=== PATIENT | female | born 2000 | race Caucasian/White ===

== ENCOUNTER 2022-11-24 11:28 | Inpatient (IN) ==
--- NOTE | 2022-11-24 11:50 | History & Physical Report ---
Date of Service November 24, 2022 Assessment & Plan (1) SROM (spontaneous rupture of membranes): Plan: Dayna is a 22-year-old currently at 38 weeks 3 days gestational age presents with spontaneous rupture of membranes. Of note patient is opting for an elective primary has been extensively discussed with her in clinic. consents reviewed and signed. 1. Fetus: Cat 1 2. Vitals: Elevated at present but IV actively being placed. Will monitor. (2) Obesity affecting : (3) Large for gestational age fetus affecting management of mother: (4) Supervision of normal first : History of Present Illness Primary Care Provider: Kofi Mccarthy DO Dayna is a 22-year-old currently at 38 weeks 3 days gestational age presents with spontaneous rupture of membranes. Patient noted to be grossly ruptured upon arrival. Of note patient is an elective primary which has been extensively reviewed with the patient previously. Patient reporting mild contractions denying any vaginal bleeding. Good movement noted. and Delivery Plans Obesity (BMI 40 and higher @ beginning of ) *Growth US @ 32wks *Weekly NSTs @ 34wks *BMI 40 or greater offer detailed/level II anatomy at [facility] *BMI 50 or greater scheduled detailed/level II anatomy at [facility] Polyhydramnios - Resolved LGA OB Labs: Blood Type A Positive 04/18/22 Antibody Screen NEGATIVE 04/18/22 Hemoglobin 11.1 g/dl (12.0-16.0) L 09/13/22 Hematocrit 33.4 % (34.1-44.9) L 09/13/22 Mean Corpuscular Volume 89.6 fL (80.0-100.0) 04/18/22 Platelet Count 318 K/uL (130-400) 04/18/22 Rubella IgG Antibody Immune (Immune) 04/18/22 Rapid Plasma Reagin Nonreactive (Nonreactive) 04/18/22 Hepatitis B Surface Antigen. NON-REACTIVE (NON-REACTIVE) 04/18/22 Hepatitis C Antibody (EIA) NON-REACTIVE (NON-REACTIVE) 04/18/22 HIV (1&2) Ag and Ab Confirmation NON-REACTIVE (NON-REACTIVE) 04/18/22 Glucose 1 Hour 50 gm Load 124 mg/dl (70-130) 09/13/22 Maternal Serum Alpha Fetoprotein 25.7 ng/mL 06/21/22 OB Optional Labs: Chlamydia trachomatis RNA NOT DETECTED (NOT DETECTED) 04/18/22 Neisseria gonorrhoeae RNA NOT DETECTED (NOT DETECTED) 04/18/22 Alpha Fetoprotein Triple Screen SEE NOTE 06/21/22 Labs Reviewed: cf/sma-negative--mln cfdna-low risk--mln msafp--neg, smp Allergies Allergy/AdvReac Type Severity Reaction Status Date / Time No Known Allergies Allergy Verified 11/21/22 08:53 Home Medications Medication Instructions Recorded Confirmed Type venlafaxine 150 mg 150 mg PO BID 03/29/22 11/21/22 History capsule,extended release 24 hr prenat.vits,jersey,xde-vunm-ktlhw 1 tab PO QAM 04/08/22 11/21/22 History Patient History Medical History Anxiety Varicella vaccination Surgical History History of tonsillectomy History of wisdom tooth extraction Family History Grandmother (Maternal) No problems noted. Family/Other Ovarian cancer Breast cancer Maternal great grandmother Denies family history of Colorectal cancer Social History Smoking Status: Never smoker Second Hand Exposure: No; Hx Alcohol Use: No Hx Substance Use: No Preferred Language: Greenlandic Communication Ability: Effective Bundle Wrapper Required: No Beliefs That Will Affect Care: None marital status: Single marital status details: saúl Tellez (27) [phone] Current Living Situation: Parent and Other Current Living Situation Comment: lives with mom, stepfather & friend, dogs, cats-step dad changing litter current occupational status: employed current occupation: medical administrative technician Feels Safe at Home: Yes Assistive Devices: None Physical Exam Constitutional: WD/WN, vitals as above well developed, well nourished and + well hydrated; no acute distress Respiratory: normal respiratory effort, lungs clear to auscultation no respiratory distress, no labored breathing and no cough Cardiovascular: RRR, no murmur, no edema Heart Sounds: normal S1 and normal S2 Gastrointestinal (Abdomen): normal bowel sounds, soft, nontender, no hepatosplenomegaly Inspection/Auscultation: abdomen not distended and no abdominal edema Psychiatric: A+Ox3, euthymic affect Apperance: appropriately dressed and appropriately groomed Genitourinary: no vaginal lesions, no adnexal mass normal external appearance and normal appearance of the urethra; no external lesions, no external swelling, no external erythema and no external laceration Manual OB Exam: + amniotic fluid clear OB Exam Monitor Tracing: + external FHT monitor used, + external uterine monitor used, + category I and + normal FHT variability Results & Data ([facility]) Vital Signs (Past 12 Hours) Vital Signs Pulse BP 11/24/22 11:47 113 H 155/86 H Coding Level of Care Code None Diagnoses SROM (spontaneous rupture of membranes) Obesity affecting O99.210 Large for gestational age fetus affecting management of mother O36.60X0 Supervision of normal first Z34.00
[2022-11-24] MEDS ORDERED: CITRIC ACID/SODIUM CITRATE 15 ML UDC PO SCH (12:00)
[2022-11-24] MEDS ORDERED: AZITHROMYCIN 500 MG in DEXTROSE 5% 250 ML IV ONE (12:00)
[2022-11-24] MEDS: LACTATED RINGER'S 1,000 ML IV SCH (12:35)
[2022-11-24 12:55] LABS: Hematocrit (blood only) 34.5 % (37.0-47.0); Hemoglobin 11.4 g/dl (12.0-16.0); Mean Corpuscular Hemoglobin 28.5 pg (25.0-34.0); Mean Corpuscular Volume 86.3 fL (80.0-100.0); Mean Platelet Volume 11.2 fL (9.4-12.4); Platelet Count 280 K/uL (130-400); RDW Coefficient of Variation 14.3 % (11.5-14.5); RDW Standard Deviation 43.9 fL (36.4-46.3); White Blood Count 10.19 K/ul (4.8-10.8)
[2022-11-24] MEDS ORDERED: fentaNYL citrate 100 MCG/2 ML VIAL ONE (12:58)
[2022-11-24] MEDS ORDERED: MoRPHine SULFATE PF 1 MG/ML 10 ML AMP/VIAL ONE (12:58)
[2022-11-24] MEDS ORDERED: OXYTOCIN 10 UNITS/ML 10ML VIAL ONE (12:58)
[2022-11-24] MEDS ORDERED: PHENYLEPHRINE 100MCG/ML 5ML SYR ONE ×2 (12:58→14:28)
[2022-11-24] MEDS ORDERED: ONDANSETRON INJ 2 MG/ML 2 ML VIAL ONE (12:58)
[2022-11-24] MEDS ORDERED: SODIUM CHLORIDE 0.9% 250 ML IV PRN (13:09)
--- NOTE | 2022-11-24 13:31 | Anesthesiology Consultation ---
Date of Service November 24, 2022 Assessment & Plan Chart Review Chart Review: Acceptable Risk for Surgery and Patient NOT seen in Pre Admission Testing Consults Requested none ASA [id number] Proposed Anesthesia Anesthesia Type: Spinal Risk / Benefits Reviewed With: PT / POA / Parent / Guardian, Accepts Plan and Informed Consent Obtained History Surgery Operation Date: 11/24/22 13:30 Proposed Procedures p Section in LD - Jori Presley MD Height/Weight Height: 5 ft 2 in Weight: 141.974 kg Allergies Allergy/AdvReac Type Severity Reaction Status Date / Time No Known Allergies Allergy Verified 11/21/22 08:53 Medications Home Medications Medication Instructions Recorded Confirmed Last Taken venlafaxine 150 mg 150 mg PO BID 03/29/22 11/21/22 03/29/22 08:00 capsule,extended release 24 hr prenat.vits,jersey,inn-plzf-airpo 1 tab PO QAM 04/08/22 11/21/22 Unknown Active Medications Generic Name Dose Route Start Last Admin Trade Name Freq PRN Reason Stop Dose Admin Cefazolin Sodium 72.5 mls @ 130 mls/hr 11/24/22 12:00 11/24/22 12:40 Ancef 3000mg IV 11/24/22 18:00 130 mls/hr TODAY@1200 LUIS F Administration Protocol Lactated Ringer's 1,000 mls @ 125 mls/hr 11/24/22 12:45 11/24/22 12:35 Lr IV 12/24/22 12:44 125 mls/hr .Q8H LUIS F Administration NPO Date Last Intake of Fluids: 11/24/22 Time Last Intake of Fluids: 08:30 Date Last Intake of Solids: 11/24/22 Time Last Intake of Solids: 08:30 Past Medical History Medical History Anxiety Varicella vaccination morbid obesity;GERD Exercise / Class Metabolic Activity II 4-5 Yardwork/Stairs/Walk up hill Past Family History Family History Grandmother (Maternal) No problems noted. Family/Other Ovarian cancer Breast cancer Maternal great grandmother Denies family history of Colorectal cancer Past Surgical History Surgical History History of tonsillectomy History of wisdom tooth extraction Past Anesthesia History No Hx of Anesthesia Complications and No Family Hx of Anesthesia Complications History of PONV No Hx of PONV and No Hx of Motion Sickness Social History Smoking Status: Never smoker Hx Alcohol Use: No Hx Substance Use: No substance use type: does not use Physical Exam Vital Signs Last Vital Signs Temp 36.7 C 11/24/22 12:15 Pulse 102 H 11/24/22 13:25 BP 142/92 H 11/24/22 12:45 Pulse Ox 100 11/24/22 13:25 Constitutional + morbidly obese; no acute distress ENMT Mouth: no dentition abnormality Thyromental Distance: < 3.5 Finger Breadths Mallampati Class: II Neck normal visual inspection and trachea midline; neck extension not limited Respiratory normal respiratory effort Auscultation: lungs clear to auscultation bilaterally Cardiovascular Rate/Rhythm: regular rate and regular rhythm Heart Sounds: no murmur Musculoskeletal Spine: normal cervical ROM Extremities: full ROM of extremities Neurologic moves all extremities Motor/Sensory: no sensory deficit Psychiatric Orientation: alert and oriented x 3 Testing Laboratory Results 11/24/22 12:13 Blood Type A Positive 11/24/22 12:13 Antibody Screen NEGATIVE 11/24/22 12:13
[2022-11-24] MEDS ORDERED: ePHEDrine sulfate 50 MG/ML SYR ONE (14:07)
[2022-11-24] MEDS ORDERED: DEXAMETHASONE SOD INJ 4 MG/ML VIAL ONE (14:34)
[2022-11-24 14:51] LABS: Base Excess Cord Arterial Bld -5.3 mEq/L (-9-1.8); CO2 Cord Arterial Blood 52 mmHg (39.1-73.5); HCO3 Cord Arterial Blood 22 mmol/L (19.7-28.5); Oxygen Sat Cord Arterial Blood < 60.0 % (<60); PO2 Cord Arterial Blood 26 mmHg (4.1-31.7); pH Cord Arterial Blood 7.24 (7.1-7.38)
[2022-11-24 14:52] LABS: Base Excess Cord Venous Blood -3.2 mEq/L (-7.7-1.9); Cord Venous Blood HCO3 25 mmol/L (18.4-26.8); Cord Venous Blood PCO2 56 mmHg (30.4-57.2); Cord Venous Blood PO2 25 mmHg (14.1-43.3); Cord Venous Blood pH 7.25 (7.20-7.44); O2 Saturation Cord Venous Bld < 60.0 % (<68)
[2022-11-24] MEDS ORDERED: HYDROCORTISONE ACETATE 25 MG SUPP PR PRN (15:01)
[2022-11-24] MEDS ORDERED: oxyCODONE/ACETAMINOPHEN 5mg/325mg TAB PO PRN (15:01)
[2022-11-24] MEDS ORDERED: KETOROLAC 30 MG/ML VIAL IV PRN ×2 (15:01)
[2022-11-24] MEDS ORDERED: NALOXONE HCL 0.08 MG in SYRINGE 1.8 ML IV PRN (15:01)
[2022-11-24] MEDS ORDERED: ePHEDrine sulfate 50 MG/ML AMP IV PRN (15:01)
[2022-11-24] MEDS ORDERED: MoRPHine SULFATE PF 1 MG/ML 10 ML AMP/VIAL INT SPINAL ONE (15:01)
[2022-11-24] MEDS ORDERED: NALOXONE HCL 0.4 MG/1 ML VIAL/CARP IV PRN (15:01)
[2022-11-24] MEDS ORDERED: PROMETHAZINE HCL 25 MG in SODIUM CHLORIDE 0.9% 50 ML IV PRN (15:01)
[2022-11-24] MEDS ORDERED: NALOXONE HCL 1 MG in SODIUM CHLORIDE 0.9% 1000ML 1,000 ML IV PRN (15:01)
[2022-11-24] MEDS ORDERED: DIPHTHERIA/TETANUS/PERTUSSIS 0.5mL SYR/VIAL (Age 7+yrs) IM ONE (15:01)
[2022-11-24] MEDS ORDERED: diphenhydrAMINE 50 MG/ML VIAL IV PRN (15:01)
[2022-11-24] MEDS ORDERED: MAGNESIUM HYDROXIDE SUSP 30 ML UDC PO PRN (15:01)
[2022-11-24] MEDS ORDERED: SENNA 8.6 MG TAB PO PRN (15:01)
[2022-11-24] MEDS ORDERED: BENZOCAINE 20% AER SPR 82.5 GM CAN EXT PRN (15:01)
[2022-11-24] MEDS ORDERED: LACTATED RINGER'S 500 ML IV PRN (15:01)
[2022-11-24] MEDS ORDERED: NALBUPHINE HCL INJ 10 MG/ML AMP IV PRN (15:01)
[2022-11-24] MEDS ORDERED: ONDANSETRON INJ 2 MG/ML 2 ML VIAL IV PRN ×2 (15:01)
--- NOTE | 2022-11-24 15:05 | Post Operative Brief Note ---
PG Immediate Post Op with CF Date of Surgery November 24, 2022 Pre & Post Diagnosis Operation Date: 11/24/22 13:30 Pre-Op Diagnosis: 38 weeks gestation; SROM; Desires Ceserean Section Post-Op Diagnosis: Same; delivery of a live male at 1413 I identified the patient and participated in the time-out.: Yes Procedure Operation Date: 11/24/22 13:30 Actual Procedures p Section in LD(Bilateral) - Jori Presley MD Surgeon Jori Presley MD Development Advisor None Estimated Blood Loss 600 Findings Consistent with Post-Op Diagnosis Specimens Specimen Description: A: Placenta - Hold B: Cord Blood C: Arterial and Venous Cord Gases Drains Gibbs Catheter OB Procedure charges OB Charges 52171
[2022-11-24] MEDS ORDERED: DC INTRASPINAL MORPHINE SCH (15:15)
[2022-11-24] MEDS ORDERED: NO NARCOTICS OR SEDATIVES SCH (15:15)
[2022-11-24] MEDS ORDERED: LACTATED RINGER'S 1,000 ML IV SCH (15:15)
[2022-11-24] MEDS ORDERED: SODIUM CHLORIDE 0.9% 1000ML 1,000 ML IV SCH (15:15)
--- NOTE | 2022-11-24 15:40 | Anesthesiology Progress Note ---
Date of Service November 24, 2022 Anesthesia Post Procedure Vital Signs Vital Signs: Temp Pulse BP Pulse Ox 11/24/22 12:15 36.7 C 11/24/22 15:35 100 H 115/64 11/24/22 15:34 100 H 99 11/24/22 15:29 99 H 100 11/24/22 15:24 87 98 11/24/22 15:25 94 H 127/70 11/24/22 15:19 100 H 98 11/24/22 15:16 115 H 93 11/24/22 15:14 93 H 97 11/24/22 15:15 96 H 124/64 11/24/22 15:09 97 H 98 11/24/22 15:05 100 H 125/69 11/24/22 15:04 93 H 98 11/24/22 13:30 93 H 146/82 H 11/24/22 13:25 102 H 100 11/24/22 13:20 94 H 100 11/24/22 13:15 96 H 99 11/24/22 13:10 94 H 100 11/24/22 13:11 98 H 91 11/24/22 13:05 94 H 98 11/24/22 13:00 93 H 99 11/24/22 12:55 94 H 99 11/24/22 12:50 93 H 99 11/24/22 12:45 98 11/24/22 12:45 97 H 11/24/22 12:45 102 H 142/92 H 11/24/22 12:00 109 H 165/86 H 11/24/22 11:47 113 H 155/86 H Transfer of Care Handoff Completed per policy Notes Mental Status: alert / awake / arousable Patient Amnestic to Procedure: Yes Nausea / Vomiting: adequately controlled Pain: adequately controlled Airway Patency, RR, SpO2: stable & adequate BP & HR: stable & adequate Hydration State: stable & adequate Neuraxial Anesthesia: was administered and sensory block is resolving Anesthetic Complications: no major complications apparent
[2022-11-24] MEDS: OXYTOCIN 20 UNITS in LACTATED RINGER'S 1,000 ML IV SCH (16:14)
--- NOTE | 2022-11-24 18:05 | Operative Report (OR) ---
DATE OF SERVICE: 11/24/2022 PROCEDURE: Primary low transverse section. SURGEON: Jori Presley MD. PREOPERATIVE DIAGNOSES: 1. Early term at 38 weeks gestational age. 2. Spontaneous rupture of membranes. 3. Desired elective section. 4. BMI greater than 55. 5. Suspected LGA. POSTOPERATIVE DIAGNOSES: 1. Early term at 38 weeks gestational age. 2. Spontaneous rupture of membranes. 3. Desired elective section. 4. BMI greater than 55. 5. Suspected LGA. 6. Status post procedure. ESTIMATED BLOOD LOSS: 600 mL DRAINS: Gibbs catheter. FLUIDS: Continuous lactated Ringer. URINE OUTPUT: Per Gibbs catheter. COMPLICATIONS: None. FINDINGS: The patient is a 22-year-old G1, P0, admitted at 38 weeks 3 days gestational age with spont aneous rupture of membranes. The patient desired a primary section and consents were review ed and signed. DESCRIPTION OF PROCEDURE: The patient was taken to the operating room after consents were assured. Upon presentation, she was properly identified. Spinal anesthesia was obtained without difficulty. The patient was then prepped and draped in normal sterile fashion. A preprocedural timeout was perfo rmed, after which a Pfannenstiel incision was made with a knife. This was carried down to underlying fascia with the Bovie and blunt dissection. The fascia was with the knife and extended la terally in each direction with pickups and Anglin scissors. And superior aspect of the fascia was grasp ed with Kochers x2, elevated off the underlying rectus muscles using blunt dissection. The inferior aspect of the fascia was grasped with Kochers x2, elevated off the underlying rectus muscles using bl unt dissection. Midline was entered bluntly and placed on stretch to provide adequate room for deliv cecelia. The bladder flap was created and a low transverse uterine incision was made with the knife. Th e uterine cavity was entered bluntly and placed on stretch to provide adequate room for delivery. Th e head of the was noted to be in cephalic position, delivered through the hysterotomy without difficulty, body and shoulders quickly followed. was noted to be initially vigorous upon de livery, then spontaneous respirations did cease and the cord was double clamped and cut and the neona te taken to the waiting nursery staff. Cord blood was obtained. Attention was then turned to delive ry of the placenta, which was delivered intact, 3-vessel cord, gentle cord traction. The uterus was then exteriorized. Several passes were made inside to remove any remaining membranes with a dry lap. The uterus was then wrapped in a wet lap and the hysterotomy was reapproximated with 0 Vicryl arin nuous running locked stitch. A second imbricating layer was performed. Excellent hemostasis was not ed. Posterior cul-de-sac was cleaned of clots and debris. The uterus and ovaries and fallopian tube s all were inspected and noted to be within normal limits. The uterus was returned to the maternal a bdomen. The right and left pericolic gutters were cleaned of clots and debris. The hysterotomy was reinspected and noted to be hemostatic. The subcutaneous fascial and muscle layers were inspected and noted to be hemostatic. The fascia was then reapproximated with 0 Vicryl continuous running stitch. The subcutaneous layers were reapproxi mated in two layers using 2-0 plain. The skin was reapproximated with 3-0 Vicryl in subcuticular sti tch with a Evan needle. Dermabond placed on top. The needle, sponge, and instrument counts were co rrect at the completion of the case. Both mother and stable in the immediate post-delivery brianna hauser. Job ID: [id number]
[2022-11-24] MEDS: DOCUSATE SODIUM 100 MG CAP PO SCH (20:38)
[2022-11-24] MEDS: SIMETHICONE 80 MG CHEW PO SCH (20:38)
[2022-11-24] MEDS ORDERED: VENLAFAXINE HCL XR 150 MG CAPXR PO SCH (21:00)
[2022-11-25] MEDS: OXYTOCIN 20 UNITS in LACTATED RINGER'S 1,000 ML IV SCH (01:08)
--- NOTE | 2022-11-25 05:35 | Obstetrical Progress Note ---
Date of Service November 25, 2022 Assessment & Plan (1) care following delivery: (2) Obesity affecting : Plan - Overall, feeling well has not yet advanced diet - supplemental feeding going well without concern - Urinating via garcia, passing gas - Not yet ambulating - Pain controlled - Hgb 11.4 on 09/23 - Vitals stable (P 97) and wnl - Continue to progress Routine PP care - Anticipate discharge @ 48-72 hours PP - Recommending f/u outpatient in 6 weeks Admission and Anticipated Discharge Date Admission Date: November 24, 2022 Supervising Physician Co-Signing Physician Notes Patient seen with resident and agree with the above findings and plan. Routine post care Subjective Patient is a 22F who is POD # 1 following delivery at [facility]. She reports feeling well overall this morning. - Ambulation - none, SCD in place - Voiding/Garcia - no independent voids, no dysuria or pressure, Garcia intact - Gas/Stool - passing gas, no bowel movement - Diet - no nausea or emesis, no appetite yet - Lochia - diminishing, light amount - Feeding Type - plans for breast feeding, currently supplementing formula - Pain Level - 0/10 Review of Systems - Denies fever, chills, sweats - Denies shortness of breath, difficulty breathing, chest pain, palpitations, chest pressure. - Denies breast pain. - Denies dysuria. - Denies headache or changes in vision. Physical Exam Physical Exam: General: Alert, oriented. No acute distress. Cardiac: RRR, normal S1/S2, no murmurs/rubs/gallops. Respiratory: Non-labored, CTAB, no wheezes/rales/rhonchi. Symmetric chest rise. Abdomen: Soft, nontender, nondistended. Bowel sounds present. Uterus: Uterine fundus firm, palpable 3 cm below umbilicus. Lower Extremities: No lower extremity edema or swelling. No deep calf pain. Abelardo's negative bilaterally. Results & Data ([facility]) Vital Signs (Past 12 Hours) Vital Signs Temp Pulse Resp BP Pulse Ox O2 Del Method 11/25/22 02:35 18 99 11/25/22 03:10 36.9 C 97 H 20 107/70 98 Room Air 11/25/22 01:35 18 100 11/25/22 01:35 107 H 100 Room Air 11/25/22 00:25 20 99 11/24/22 23:25 18 97 11/24/22 23:25 Room Air 11/24/22 23:25 37 C 98 H 18 122/83 97 Room Air 11/24/22 22:00 18 100 11/24/22 21:00 18 99 11/24/22 19:30 36.6 C 89 18 128/84 100 Room Air 11/24/22 20:00 18 100 11/24/22 19:00 18 99 11/24/22 18:31 16 100 Resident Activity Tracking Resident Involvement: Resident Care Provided Care Provided: Adult Hospital Medicine
[2022-11-25] MEDS ORDERED: CITRIC ACID/SODIUM CITRATE 15 ML UDC PO SCH (06:00)
[2022-11-25 06:29] LABS: Basophils # (auto) 0.02 K/uL (0-0.2); Basophils % (auto) 0.1 %; Eosinophils # (auto) 0.04 K/uL (0-0.50); Eosinophils % (auto) 0.3 %; Hematocrit (blood only) 30.9 % (37.0-47.0); Hemoglobin 10.3 g/dl (12.0-16.0); Immature Granulocytes # (auto) 0.05 K/uL (0.01-0.20); Immature Granulocytes % (auto) 0.3 %; Lymphocytes # (auto) 2.54 K/uL (1.2-3.4); Lymphocytes % (auto) 16.3 %; Mean Corpuscular Hemoglobin 28.5 pg (25.0-34.0); Mean Corpuscular Hgb Conc 33.3 g/dL (32.0-36.0); Mean Corpuscular Volume 85.6 fL (80.0-100.0); Monocytes # (auto) 1.03 K/uL (0.11-0.59); Monocytes % (auto) 6.6 %; Neutrophils # (auto) 11.92 K/uL (1.40-6.50); Neutrophils % (auto) 76.4 %; Platelet Count 253 K/uL (130-400); RDW Standard Deviation 43.6 fL (36.4-46.3); Red Blood Count 3.61 M/uL (4.20-5.40)
[2022-11-25] MEDS ORDERED: Nursing to Pharmacy Communication SCH (07:30)
[2022-11-25] MEDS: PRENATAL VITAMIN 1 TAB PO SCH (08:29)
[2022-11-25] MEDS: FERROUS SULFATE 325 MG TAB PO SCH (08:30)
[2022-11-25] MEDS: VENLAFAXINE HCL XR 150 MG CAPXR PO SCH (08:30)
[2022-11-25] MEDS: SIMETHICONE 80 MG CHEW PO SCH ×5 (08:31→20:58)
[2022-11-25] MEDS: DOCUSATE SODIUM 100 MG CAP PO SCH ×2 (08:31→20:58)
[2022-11-25] MEDS: LACTATED RINGER'S 1,000 ML IV SCH (10:44)
[2022-11-25] MEDS: NYSTATIN POWDER 15GM BTL EXT SCH ×2 (13:10→23:35)
[2022-11-25] MEDS ORDERED: diphenhydrAMINE Capsule 25 MG CAP PO PRN (15:00)
[2022-11-25] MEDS ORDERED: ONDANSETRON INJ 2 MG/ML 2 ML VIAL IV PRN (15:00)
[2022-11-25] MEDS ORDERED: KETOROLAC 30 MG/ML VIAL IV PRN (15:00)
[2022-11-25] MEDS ORDERED: PROMETHAZINE HCL 25 MG in SODIUM CHLORIDE 0.9% 50 ML IV PRN (15:00)
[2022-11-25] MEDS ORDERED: diphenhydrAMINE 50 MG/ML VIAL IV PRN (15:00)
[2022-11-25] MEDS: IBUPROFEN 600 MG TAB PO PRN ×2 (16:08→23:49)
[2022-11-25] MEDS: oxyCODONE/ACETAMINOPHEN 5mg/325mg TAB PO PRN ×2 (16:09→23:49)
[2022-11-25] MEDS ORDERED: bisacodyL 5 MG TABEC PO SCH (20:00)
--- NOTE | 2022-11-26 05:27 | Obstetrical Progress Note ---
Date of Service November 26, 2022 Assessment & Plan (1) care following delivery: (2) Obesity affecting : Plan - Overall, feeling well and eating well today - feeding going well without concern - Urinating and passing gas appropriately - Ambulating well in room - Pain controlled w/ Percocet and Ibuprofen - Hgb 10.3 on 11/25 - Vitals stable, Pulse 114 (asymptomatic) - Incision clean and dry w/o purulence or erythema, continue Nystatin powder - Routine PP care progressing well - Anticipate discharge @ 48-72 hours PP - Recommending f/u outpatient in 6 weeks Admission and Anticipated Discharge Date Admission Date: November 24, 2022 Subjective Patient is a 22F who is POD # 2 following delivery at 38 3/. She reports feeling well overall this morning. - Ambulation - to bathroom and back w/o difficulty - Voiding/Gibbs - Gibbs voids, independently voiding w/o dysuria - Gas/Stool - passing gas, no bowel movement - Diet - no nausea or emesis, eating regular diet - Lochia - diminishing, light amount - Infant Feeding Type - plans for breast feeding, currently supplementing formula - Pain Level - 12/20 Review of Systems - Denies fever, chills, sweats - Denies shortness of breath, difficulty breathing, chest pain, palpitations, chest pressure. - Denies breast pain. - Denies dysuria. - Denies headache or changes in vision. Physical Exam Physical Exam: General: Alert, oriented. No acute distress. Cardiac: RRR, normal S1/S2, no murmurs/rubs/gallops. Respiratory: Non-labored, CTAB, no wheezes/rales/rhonchi. Symmetric chest rise. Abdomen: Soft, nontender, nondistended. Bowel sounds present. Uterus: Uterine fundus firm, palpable 3 cm below umbilicus. Incision clean and dry w/o erythema or purulence, Nystatin powder applied clean pad over surgical site. Lower Extremities: No lower extremity edema or swelling. No deep calf pain. Abelardo's negative bilaterally. Results & Data ([facility]) Vital Signs (Past 12 Hours) Vital Signs Temp Pulse Resp BP Pulse Ox O2 Del Method 11/26/22 00:25 36.9 C 114 H 18 125/82 98 Room Air 11/25/22 19:41 37.1 C 106 H 16 140/84 98 Room Air Resident Activity Tracking Resident Involvement: Resident Care Provided Care Provided: OB Delivery
[2022-11-26] MEDS: IBUPROFEN 600 MG TAB PO PRN ×4 (06:35→22:15)
[2022-11-26 06:54] LABS: Hematocrit (blood only) 30.4 % (37.0-47.0); Hemoglobin 10.3 g/dl (12.0-16.0)
[2022-11-26] MEDS: FERROUS SULFATE 325 MG TAB PO SCH (07:29)
[2022-11-26] MEDS: DOCUSATE SODIUM 100 MG CAP PO SCH ×2 (07:29→20:33)
[2022-11-26] MEDS: PRENATAL VITAMIN 1 TAB PO SCH (07:29)
[2022-11-26] MEDS: SIMETHICONE 80 MG CHEW PO SCH ×4 (07:29→20:33)
[2022-11-26] MEDS: VENLAFAXINE HCL XR 150 MG CAPXR PO SCH (07:29)
[2022-11-26] MEDS: NYSTATIN POWDER 15GM BTL EXT SCH ×2 (07:30→20:33)
[2022-11-26] MEDS: oxyCODONE/ACETAMINOPHEN 5mg/325mg TAB PO PRN ×4 (07:30→22:15)
[2022-11-26] MEDS ORDERED: bisacodyL 10 MG SUPP PR PRN (15:01)
[2022-11-27] MEDS: IBUPROFEN 600 MG TAB PO PRN (03:09)
[2022-11-27] MEDS: oxyCODONE/ACETAMINOPHEN 5mg/325mg TAB PO PRN ×2 (03:10→07:34)
--- NOTE | 2022-11-27 05:39 | Obstetrical Progress Note ---
Date of Service November 27, 2022 Assessment & Plan (1) care following delivery: (2) Obesity affecting : Plan - Overall, feeling well and eating well today - feeding going well without concern - Urinating and passing gas appropriately - Ambulating well in room - Pain controlled w/ Percocet and Ibuprofen - Hgb 10.3 on 11/26 - Vitals stable and wnl - Incision clean and dry w/o purulence or erythema, continue Nystatin powder - Routine PP care progressing well - Anticipate discharge @ 48-72 hours PP - Discussed discharge ins tructions - Recommending f/u outpatient in 6 weeks Admission and Anticipated Discharge Date Admission Date: November 24, 2022 Subjective Patient is a 22F who is POD # 3 following delivery at 38 3/7. She reports feeling well overall this morning. - Ambulation - to bathroom and back w/o difficulty - Voiding/Gibbs - independently voiding w/o dysuria, Gibbs removed POD #1 - Gas/Stool - passing gas, no bowel movement - Diet - no nausea or emesis, eating regular diet - Lochia - diminishing, light amount - Feeding Type - plans for breast feeding by pumping, currently supplemen ting formula - Pain Level - 3/10, w/ ibuprofen/Percocet Review of Systems - Denies fever, chills, sweats - Denies shortness of breath, difficulty breathing, chest pain, palpitations, chest pressure. - Denies breast pain. - Denies dysuria. - Denies headache or changes in vision. Physical Exam Physical Exam: General: Alert, oriented. No acute distress. Cardiac: RRR, normal S1/S2, no murmurs/rubs/gallops. Respiratory: Non-labored, CTAB, no wheezes/rales/rhonchi. Symmetric chest rise. Abdomen: Soft, nontender, nondistended. Bowel sounds present. Uterus: Uterine fundus firm, palpable 3 cm below umbilicus. Incision clean and dry w/o erythema or purulence, Nystatin powder applied, Dermabond intact. Lower Extremities: No lower extremity edema or swelling. No deep calf pain. Abelardo's negative bilaterally. Results & Data ([facility]) Vital Signs (Past 12 Hours) Vital Signs Temp Pulse Pulse Resp BP Pulse Ox O2 Del Method 11/27/22 03:18 37.0 C 91 H 16 121/83 98 Room Air 11/26/22 20:18 37.0 C 102 H 19 126/84 99 Room Air Resident Activity Tracking Resident Involvement: Resident Care Provided Care Provided: OB Delivery
[2022-11-27] MEDS: SIMETHICONE 80 MG CHEW PO SCH (07:34)
[2022-11-27] MEDS: DOCUSATE SODIUM 100 MG CAP PO SCH (07:34)
[2022-11-27] MEDS: FERROUS SULFATE 325 MG TAB PO SCH (07:34)
[2022-11-27] MEDS: PRENATAL VITAMIN 1 TAB PO SCH (07:34)
[2022-11-27] MEDS: VENLAFAXINE HCL XR 150 MG CAPXR PO SCH (10:19)
[2022-11-27] MEDS: NYSTATIN POWDER 15GM BTL EXT SCH (10:19)
--- NOTE | 2022-11-28 18:21 | Discharge Summary (DS) ---
DATE OF ADMISSION: 11/24/2022. DATE OF DISCHARGE: 11/27/2022. HOSPITAL COURSE: The patient was admitted with spontaneous rupture of membranes with desire for prim juan luis section. A primary section was performed without complication. The patient re covered well and was discharged home on day #3 without any complications or con cerns. The patient was discharged home in stable condition with a plan to follow up at 6 weeks for r outine care. The patient was provided both written and verbal discharge instructions. Job ID: [id number]
== END 2022-11-27 12:47 | disposition home or self-care (01) | DRG 788 ==
LOC: OPB 11:28 → 4S1 11:29 → 4E2 17:25

== ENCOUNTER 2024-06-18 05:32 | Inpatient (IN) ==
--- NOTE | 2024-06-16 09:44 | Anesthesiology Consultation ---
Date of Service June 16, 2024 Assessment & Plan (1) Encounter for pre-operative examination: Chart Review Chart Review: entry level financial analyst initiated Infectious Disease screening: Per PAT nursing assessment on 06/16/24, No known infectious disease contacts in past 10 days or current infectious disease symptoms. No recent travel outside the country. History Surgery Operation Date: 06/18/24 10:40 Proposed Procedures p Section in LD (Delivery of Baby Through Abdominal Incision) - Nika Corbett MD Height/Weight Height: 5 ft 2 in Weight: 138.799 kg Allergies Allergy/AdvReac Type Severity Reaction Status Date / Time No Known Allergies Allergy Verified 06/16/24 08:32 Medications Home Medications Medication Instructions Recorded Confirmed Last Taken venlafaxine 150 mg 300 mg PO QAM 03/29/22 06/16/24 05/12/24 08:00 capsule,extended release 24 hr [id number]-[id number]-Co-FA 1 tab PO DAILY 12/05/23 06/16/24 05/14/24 23:00 [] ondansetron 4 mg disintegrating 4 mg PO Q6H PRN nausea and 02/09/24 06/16/24 05/15/24 13:00 tablet vomiting #30 tabs ferrous sulfate 325 mg (65 mg 325 mg PO 2XWK 05/15/24 06/16/24 Unknown iron) tablet (iron) Past Medical History Medical History (Updated 06/16/24 @ 09:42 by Antonia Cortez PA-C) DAISHA positive Anxiety History of postoperative nausea and vomiting Inflammatory arthritis Obesity Polyhydramnios Psoriatic arthritis Past Family History Family History Grandmother (Maternal) No problems noted. Family/Other Ovarian cancer Breast cancer Maternal great grandmother Grandfather (Paternal) Myocardial infarction Uncle Myocardial infarction Denies family history of Prostate cancer Colorectal cancer Past Surgical History Surgical History (Updated 06/16/24 @ 09:42 by Antonia Cortez PA-C) History of tonsillectomy History of wisdom tooth extraction S/P section (11/2022) 11/24/22: SAB (L3-4, attempts x 2) Social History Smoking Status: Never smoker Do You Dip or Chew Tobacco: No Hx Alcohol Use: No Hx Substance Use: No substance use type: does not use
--- NOTE | 2024-06-17 21:48 | History & Physical Report ---
Date of Service June 17, 2024 Assessment & Plan (1) 39 weeks gestation of : (2) History of delivery, antepartum: (3) Polyhydramnios: (4) Obesity affecting : Plan Patient will be admitted on 06/18 for planned repeat c/s, per her desires. Consent reviewed and signed. Preop and postop instructions reviewed. Labs in am. History of Present Illness Chief Complaint: planned repeat c/s Primary Care Provider: Kofi Mccarthy, DO 24yo at 39+wks ega will present to for admission 06/18 for planned repeat cs. Patient denies rom, vb. +FM. No regular ctx. Prior c/s elective and now wants repeat c/s. PNC c/b 1. prior c/s, desires repeat 2. obesity 3. polyhydramnios--last growth u/s mfm [facility] [place] efw 92% PNL rh pos, ri, gbs neg OBH: c/s x 1 GYNH: nl pap, last 2021, no stds Allergies Allergy/AdvReac Type Severity Reaction Status Date / Time No Known Allergies Allergy Verified 06/17/24 13:40 Home Medications Medication Instructions Recorded Confirmed Type venlafaxine 150 mg 300 mg PO QAM 03/29/22 06/17/24 History capsule,extended release 24 hr nymdaflf-sso-Ir-FA 1 tab PO DAILY 12/05/23 06/17/24 History [] ondansetron 4 mg disintegrating 4 mg PO Q6H PRN nausea and 02/09/24 06/17/24 Rx tablet vomiting #30 tabs ferrous sulfate 325 mg (65 mg 325 mg PO 2XWK 05/15/24 06/17/24 History iron) tablet (iron) Patient History Medical History (Updated 06/17/24 @ 21:47 by Veronica Lloyd MD, FACOG) Obesity Polyhydramnios Inflammatory arthritis History of postoperative nausea and vomiting DAISHA positive Psoriatic arthritis Anxiety Surgical History (Updated 06/17/24 @ 21:47 by Veronica Lloyd MD, FACOG) S/P section (11/2022) 11/24/22: SAB (L3-4, attempts x 2) History of tonsillectomy History of wisdom tooth extraction Family History Grandmother (Maternal) No problems noted. Family/Other Ovarian cancer Breast cancer Maternal great grandmother Grandfather (Paternal) Myocardial infarction Uncle Myocardial infarction Denies family history of Prostate cancer Colorectal cancer Social History Smoking Status: Never smoker Second Hand Exposure: No; Do You Dip or Chew Tobacco: No; Hx Alcohol Use: No Hx Substance Use: No Preferred Language: Portuguese Communication Ability: Effective Solar Installation Helper Required: No Beliefs That Will Affect Care: None marital status: Single marital status details: saúl Tellez (29) [phone] Current Living Situation: Family Current Living Situation Comment: mom, stepfather & uncle, cousin, son, dogs, cats-step dad changing litter current occupational status: employed current occupation: group insurance specialist Feels Safe at Home: Yes Assistive Devices: None Review of Systems as per Subjective / HPI Physical Exam Constitutional: WD/WN, vitals as above Respiratory: normal respiratory effort, lungs clear to auscultation Cardiovascular: Rate/Rhythm: regular rate and regular rhythm Gastrointestinal (Abdomen): soft gravid nt obese Musculoskeletal: tr edema nontender calves Neurologic: grossly normal Psychiatric: A+Ox3, euthymic affect Genitourinary: nst reactive. Coding Level of Care Code None Diagnoses 39 weeks gestation of Z3A.39 History of delivery, antepartum O34.219 Polyhydramnios O40.9XX0 Obesity affecting O99.210
[2024-06-18] MEDS: LACTATED RINGER'S 1,000 ML IV ONE (06:05)
[2024-06-18 06:18] LABS: Basophils # (auto) 0.03 K/uL (0.00-0.20); Basophils % (auto) 0.2 %; Eosinophils # (auto) 0.26 K/uL (0.00-0.50); Eosinophils % (auto) 1.9 %; Hematocrit (blood only) 32.2 % (37.0-47.0); Hemoglobin 10.3 g/dl (12.0-16.0); Immature Granulocytes # (auto) 0.06 K/uL (0.01-0.20); Immature Granulocytes % (auto) 0.4 %; Lymphocytes # (auto) 3.19 K/uL (1.20-3.40); Mean Corpuscular Hemoglobin 26.1 pg (25.0-34.0); Mean Corpuscular Volume 81.7 fL (80.0-100.0); Mean Platelet Volume 11.1 fL (9.4-12.4); Monocytes # (auto) 0.96 K/uL (0.11-0.59); Monocytes % (auto) 6.9 %; Neutrophils # (auto) 9.37 K/uL (1.40-6.50); Neutrophils % (auto) 67.6 %; Platelet Count 290 K/uL (130-400); RDW Coefficient of Variation 13.9 % (11.5-14.5); RDW Standard Deviation 40.8 fL (36.4-46.3); Red Blood Count 3.94 M/uL (4.20-5.40); White Blood Count 13.87 K/ul (4.8-10.8)
[2024-06-18] MEDS ORDERED: SODIUM CHLORIDE 0.9% 250 ML IV PRN (06:31)
[2024-06-18] MEDS ORDERED: OXYTOCIN 10 UNITS/ML VIAL ONE (06:38)
[2024-06-18] MEDS ORDERED: PHENYLEPHRINE HCL 25 MG/250 ML NSS IV ONE (06:38)
[2024-06-18] MEDS ORDERED: fentaNYL citrate PF 100 MCG/2 ML VIAL ONE (06:39)
[2024-06-18] MEDS ORDERED: MoRPHine SULFATE PF 1 MG/ML 10 ML AMP/VIAL ONE (06:39)
[2024-06-18] MEDS ORDERED: NALBUPHINE HCL INJ 10 MG/ML AMP IV PRN (07:02)
[2024-06-18] MEDS ORDERED: LACTATED RINGER'S 500 ML IV PRN (07:02)
[2024-06-18] MEDS ORDERED: KETOROLAC 30 MG/ML VIAL IV PRN (07:02)
[2024-06-18] MEDS ORDERED: ePHEDrine sulfate 50 MG/ML AMP IV PRN (07:02)
[2024-06-18] MEDS ORDERED: ONDANSETRON INJ 2 MG/ML 2 ML VIAL IV PRN ×2 (07:02→08:59)
[2024-06-18] MEDS ORDERED: diphenhydrAMINE 50 MG/ML VIAL IV PRN (07:02)
[2024-06-18] MEDS ORDERED: HYDROmorphone INJ 0.5 MG/0.5 ML SYR IV PRN (07:02)
[2024-06-18] MEDS ORDERED: NALOXONE HCL 0.4 MG/1 ML VIAL/CARP IV PRN (07:02)
[2024-06-18] MEDS ORDERED: NALOXONE HCL 0.08 MG in SYRINGE 1.8 ML IV PRN (07:02)
[2024-06-18] MEDS ORDERED: MoRPHine SULFATE 2 MG/ML CARP IV PRN (07:02)
[2024-06-18] MEDS ORDERED: NALOXONE HCL 1 MG in SODIUM CHLORIDE 0.9% 1,000 ML IV PRN (07:02)
[2024-06-18] MEDS ORDERED: SODIUM CHLORIDE 0.9% 1,000 ML IV SCH (07:15)
[2024-06-18] MEDS ORDERED: NO NARCOTICS OR SEDATIVES SCH (07:15)
[2024-06-18] MEDS ORDERED: DC INTRASPINAL MORPHINE SCH (07:15)
[2024-06-18] MEDS: ACETAMINOPHEN 500 MG TAB PO SCH (07:21)
--- NOTE | 2024-06-18 07:22 | History & Physical Bridge Note ---
Date of Service June 18, 2024 History & Physical Bridge Note I have examined the patient, reviewed the History & Physical and in the interval since the performance of the History & Physical I have noted the following changes of clinical significance: no changes noted
[2024-06-18] MEDS: CITRIC ACID/SODIUM CITRATE 15 ML UDC PO ONE (07:24)
[2024-06-18] MEDS: ceFAZolin 3000MG 3,000 MG/72.5 ML BAG IV SCH (07:31)
[2024-06-18] MEDS ORDERED: ePHEDrine sulfate 50 MG/5 ML SYR ONE (07:52)
[2024-06-18] MEDS ORDERED: ONDANSETRON INJ 2 MG/ML 2 ML VIAL ONE (07:57)
[2024-06-18] MEDS ORDERED: KETOROLAC 30 MG/ML VIAL ONE (08:24)
--- NOTE | 2024-06-18 08:42 | Operative Report ---
Post Operative Report Pre & Post Diagnosis Operation Date: 06/18/24 07:30 Pre-Op Diagnosis: (1) 39 weeks gestation of (2) History of delivery, desires repeat c/s (3) Polyhydramnios (4) Obesity Post-Op Diagnosis: Same I identified the patient and participated in the time-out.: Yes Procedure Operation Date: 06/18/24 07:30 <No data on this case meets the specified criteria> Repeat Low Transverse Section Lysis of Adhesions Surgeon Veronica Lloyd MD, FACOG Webmaster Brian Quantitative Blood Loss (QBL) 213 Findings Consistent with Post-Op Diagnosis (viable infant, apgars 8,8. normal uterus tu bes and ovaries bilaterally. adhesions of omentum to ant abd wall and left underside of fascia. adhesions of uterus filmy and dense anteriorly) Fluids 1500 Specimens cord blood Drains garcia Anesthesia Type Spinal Complications none Disposition Accompanied Patient To Recovery: No Disposition: L&D Indications 24yo with prior c/s, desires repeat c/s, now at 39+wks ega. Description of Procedure The patient was taken to the operating room and identified. After adequate anesthesia was obtained, she was placed in the supine position with a leftward tilt on the operating table and prepped and draped in the usual sterile fashion. A garcai catheter had already been placed. The knife was used to create a Pfannensteil skin incision that was carried down to the underlying layer of fascia. The fascia was nicked in the midline and this opening was extended laterally using Anglin scissors. Ryan clamps were placed on the superior and inferior aspect of the fascial incision tenting it upward and the underlying rectus muscles were dissected off the overlying fascia both sharply and bluntly using Anglin scissors. The rectus muscles were bluntly in the midline. The peritoneal cavity was bluntly entered into. Adhesions were encountered that were taken down using cautery. This opening was stretched. The bladder blade was placed. The vesicouterine peritoneum was elevated and opened up into and the bladder flap was created digitally and bladder blade was replaced. The knife was used to create a hysterotomy and this opening was stretched. The operators hand was placed through the hysterotomy and the bladder blade was kushal jesica. The head was floating and with fundal pressure, the vacuum was applied to the cephalic and the head was delivered. The shoulders and body were rapidly delivered. The cord was clamped and cut and the infant's mouth and nares were bulb suction. The infant was handed off to the awaiting pediatricians. Cord blood was obtained. The placenta was manually expressed. The uterus was exteriorized and cleared of all clots and debris. Dilute IV Pitocin was begun. The uterine tone was improving. The hysterotomy was closed in a running interlocking fashion using 0 Vicryl followed by a second imbricating layer of 0 Vicryl. The hysterotomy was not hemostatic at lower edge and single figure of eight suture of 2-0 vicryl placed for excellent hemostasis. The pelvis was suctioned. The uterus was returned to the abdomen. The gutters were cleared of all clots and debris. The hysterotomy was reinspected and noted to be hemostatic. Raw areas on anterior surface of uterus noted and Perclot 3gm placed along anterior uterus and hysterotomy. The fascia was then closed in running fashion using 0 Vicryl. The subcutaneous fat was copiously irrigated and reapproximated using 2-0 chromic. The skin was closed in a subcuticular fashion using 4-0 monocryl. At this point the procedure was terminated. The patient was transferred to the recovery room in stable condition. All sponge, lap and needle counts are correct x2. I attest to the content of the Intraoperative Record and any orders documented therein. Any exceptions are noted below. OB Procedure Charges 33196
[2024-06-18] MEDS ORDERED: BENZOCAINE 20% SPRY 85 APPLN/85 GM CAN EXT PRN (08:59)
[2024-06-18] MEDS ORDERED: HYDROCORTISONE ACETATE 25 MG SUPP PR PRN (08:59)
[2024-06-18] MEDS ORDERED: ACETAMINOPHEN 325 MG TAB PO SCH (08:59)
[2024-06-18] MEDS ORDERED: CALCIUM CARBONATE 500 MG CHEWABLE TAB PO PRN (08:59)
[2024-06-18] MEDS ORDERED: LACTATED RINGER'S 1,000 ML IV SCH (08:59)
[2024-06-18] MEDS ORDERED: IBUPROFEN 600 MG TAB PO SCH (09:00)
[2024-06-18] MEDS ORDERED: KETOROLAC 30 MG/ML VIAL IV SCH (09:00)
[2024-06-18] MEDS: MoRPHine SULFATE PF 1 MG/ML 10 ML AMP/VIAL INT SPINAL ONE (09:08)
[2024-06-18] MEDS: DIPHTHER/TETAN/PERTUS Vaccine (Tdap, Adol/Adult) 0.5mL IM ONE (09:31)
[2024-06-18] MEDS: VENLAFAXINE HCL XR 150 MG CAPXR PO SCH (09:33)
[2024-06-18] MEDS: OXYTOCIN 20 UNITS/LR 1,002 ML IV SCH (09:52)
--- NOTE | 2024-06-18 11:37 | Anesthesiology Progress Note ---
Date of Service June 18, 2024 Anesthesia Post Procedure Vital Signs Vital Signs: Temp Pulse Resp BP Pulse Ox 06/18/24 10:44 99 06/18/24 10:44 92 H 06/18/24 10:44 100 H 128/76 06/18/24 10:39 95 H 98 06/18/24 10:34 90 99 06/18/24 10:29 95 H 99 06/18/24 10:24 94 H 99 06/18/24 10:19 90 99 06/18/24 10:14 99 H 121/66 96 06/18/24 10:09 98 H 100 06/18/24 10:06 97 H 84 L 06/18/24 10:04 99 06/18/24 10:04 94 H 06/18/24 10:04 90 118/67 06/18/24 09:59 85 98 06/18/24 09:58 98 H 90 06/18/24 09:54 100 06/18/24 09:54 86 06/18/24 09:54 82 115/59 L 06/18/24 09:49 78 98 06/18/24 09:44 20 06/18/24 09:44 84 114/68 94 06/18/24 09:39 85 99 06/18/24 09:38 89 92 06/18/24 09:34 20 06/18/24 09:34 100 06/18/24 09:34 77 06/18/24 09:34 77 114/63 06/18/24 09:29 88 100 06/18/24 09:24 18 06/18/24 09:24 100 06/18/24 09:24 75 06/18/24 09:24 82 112/58 L 06/18/24 09:19 94 H 100 06/18/24 09:18 97 H 92 06/18/24 09:14 20 06/18/24 09:14 97 H 124/69 99 06/18/24 09:09 82 100 06/18/24 09:04 18 06/18/24 09:04 100 06/18/24 09:04 79 06/18/24 09:04 74 118/68 06/18/24 08:59 82 100 06/18/24 08:56 85 114/55 L 06/18/24 08:54 20 06/18/24 08:54 94 H 100 06/18/24 08:52 86 72 L 06/18/24 08:49 80 100 06/18/24 08:44 36.6 C 20 06/18/24 08:44 97 H 107/55 L 100 06/18/24 06:23 95 H 117/75 06/18/24 06:20 93 H 166/90 H 06/18/24 06:08 37.0 C 18 06/18/24 06:02 97 H 181/86 H 06/18/24 05:55 18 06/18/24 05:55 37.0 C 18 Transfer of Care Handoff Completed per policy Notes Mental Status: alert / awake / arousable and participated in evaluation Patient Amnestic to Procedure: Yes Nausea / Vomiting: adequately controlled Pain: adequately controlled Airway Patency, RR, SpO2: stable & adequate BP & HR: stable & adequate Hydration State: stable & adequate Neuraxial Anesthesia: was administered and sensory block is resolving Anesthetic Complications: no major complications apparent and Pt Satisfied with anesthetic care
[2024-06-18] MEDS ORDERED: Nursing to Pharmacy Communication SCH (12:15)
[2024-06-18] MEDS: SIMETHICONE 80 MG CHEW PO SCH (13:20)
[2024-06-18] MEDS: SODIUM CHLORIDE 0.9% 500 ML IV ONE (14:31)
[2024-06-18] MEDS: IBUPROFEN 600 MG TAB PO SCH (15:10)
[2024-06-18] MEDS: ACETAMINOPHEN 325 MG TAB PO SCH (15:11)
[2024-06-18] MEDS: KETOROLAC 30 MG/ML VIAL IV SCH (15:49)
[2024-06-18] MEDS: SENNA 8.6 MG TAB PO PRN (20:50)
[2024-06-19] MEDS ORDERED: diphenhydrAMINE 50 MG/ML VIAL IV PRN (01:02)
[2024-06-19] MEDS ORDERED: diphenhydrAMINE Capsule 25 MG CAP PO PRN (01:02)
[2024-06-19] MEDS ORDERED: PROMETHAZINE 12.5 MG/50.5 ML BAG IV PRN (01:02)
--- NOTE | 2024-06-19 06:29 | Obstetrical Progress Note ---
Date of Service June 19, 2024 Assessment & Plan (1) Encounter for supervision of normal in multigravida: Plan Pt is 24 yo post-op day 1 s/p at 39w4d. was complicated by polyhydramnios Plan to encourage walking and breast feeding/pumping Tylenol, Motrin, or oxycodone for pain PRN Removed bandage from incision Education regarding incision care including use of pad to reduce moisture in area of skin fold. Upon discharge from hospital, pt to follow up with Dr. Lloyd in 6 weeks Admission and Anticipated Discharge Date Admission Date: June 18, 2024 Supervising Physician Co-Signing Physician Notes Resident Physician Supervision Note: I was present with Dr. Bonilla during the history and exam. I discussed the case with the resident and agree with the findings and plan as documented in the note. Any exceptions or clarifications are listed here: doing well, eating, voiding, ambulating, no flatus yet. abd soft ff 2 down, incision c/d/i, ext nt calves. stable, routine care. rhpos, breast and bottle feeding, ri. hgb pending. Documented By: Veronica Lloyd MD, FACOG Subjective Pt is 24 yo post- day 1 s/p at 39w4d. was complicated by mild polyhydramnios Ambulation:Short distances in room Voiding:voiding normally Passing gas: no BM: no Diet tolerance:regular diet Lochia:bloody, no clots Feeding type: breast pump, supplement with formula Current pain level: 4-6 /10 improved with ibuprofen Resting comfortably this morning in NAD. Reports she is having "gas pains" but no passing of gas or BM Denies YEBOAH, CP, SOB, N/V/D, LE pain/swelling. Review of Systems Review of Systems: As per HPI Physical Exam Constitutional: WD/WN, vitals as above Respiratory: normal respiratory effort, lungs clear to auscultation Cardiovascular: Rate/Rhythm: regular rate and regular rhythm Heart Sounds: no murmur Trace edema at bilateral ankles and feet. Non pitting Gastrointestinal (Abdomen): normal bowel sounds, soft, nontender, no hepatosplenomegaly Uterine fundus firm and at level of umbilicus Incision is well approximated and clean. Slightly moist due to presence at a skin fold. No drainage noted Neurologic: PERRL, EOMI, accommodation nl, no face palsy, no dysarthria Moving all 4 extremities on command Psychiatric: A+Ox3, euthymic affect Results & Data Vital Signs (Past 12 Hours) Vital Signs Temp Pulse Resp BP Pulse Ox O2 Del Method 06/19/24 03:09 37.2 C 101 H 20 97/59 L 100 Room Air 06/18/24 23:10 36.7 C 106 H 18 102/70 94 Room Air 06/18/24 19:17 37.2 C 99 H 18 98/63 L 98 Room Air Resident Activity Tracking Resident Involvement: Resident Care Provided Care Provided: Adult Hospital Medicine
[2024-06-19 07:17] LABS: Hematocrit (blood only) 28.2 % (37.0-47.0); Hemoglobin 9.1 g/dl (12.0-16.0); Mean Corpuscular Hemoglobin 26.4 pg (25.0-34.0); Mean Corpuscular Hgb Conc 32.3 g/dL (32.0-36.0); Mean Corpuscular Volume 81.7 fL (80.0-100.0); Mean Platelet Volume 10.5 fL (9.4-12.4); Platelet Count 235 K/uL (130-400); RDW Coefficient of Variation 14.3 % (11.5-14.5); RDW Standard Deviation 42.1 fL (36.4-46.3); Red Blood Count 3.45 M/uL (4.20-5.40); White Blood Count 13.83 K/ul (4.8-10.8)
[2024-06-19] MEDS: DOCUSATE SODIUM 100 MG CAP PO SCH (07:42)
[2024-06-19 07:51] LABS: Basophils # (auto) 0.02 K/uL (0.00-0.20); Basophils % (auto) 0.1 %; Eosinophils # (auto) 0.06 K/uL (0.00-0.50); Eosinophils % (auto) 0.4 %; Immature Granulocytes # (auto) 0.06 K/uL (0.01-0.20); Immature Granulocytes % (auto) 0.4 %; Lymphocytes # (auto) 1.02 K/uL (1.20-3.40); Lymphocytes % (auto) 7.4 %; Monocytes # (auto) 0.56 K/uL (0.11-0.59); Neutrophils # (auto) 12.11 K/uL (1.40-6.50); Neutrophils % (auto) 87.7 %; Polychromasia 1+
[2024-06-19] MEDS: oxyCODONE HCL IR 5 MG TAB (IMMEDIATE RELEASE) PO PRN (07:57)
[2024-06-19] MEDS: FERROUS SULFATE 325 MG TAB PO SCH (08:48)
[2024-06-19] MEDS: PRENATAL VITAMIN 1 TAB PO SCH (08:48)
[2024-06-19] MEDS: HYDROmorphone INJ 0.5 MG/0.5 ML SYR IV PRN (13:13)
[2024-06-19] MEDS: bisacodyL 5 MG TABEC PO SCH (20:40)
[2024-06-20 06:59] LABS: Hemoglobin 8.5 g/dl (12.0-16.0)
--- NOTE | 2024-06-20 08:02 | Obstetrical Progress Note ---
Date of Service June 20, 2024 Assessment & Plan (1) Encounter for care and examination after delivery: 24 [facility] doing [facility] -Meeting all pp milestones -A+/rubella immunepumping and formula -f/u 6 weeks for appt, stable for dc Subjective Ambulation: ambulating normally Voiding: no voiding problems Passing Gas:: Yes Diet Tolerance:: regular diet Lochia:: Small Feeding Type:: bottle feeding (pump and formula) Pain well managed with medication Review of Systems Denies fevers, chills, n/v, YEBOAH, CP, SOB Physical Exam Constitutional WD/WN, vitals as above no acute distress Respiratory normal respiratory effort, lungs clear to auscultation Cardiovascular RRR, no murmur, no edema Gastrointestinal (Abdomen) Percussion/Palpation: abdomen soft; abdomen nontender fundus firm at umbilicus and NT, incision c/d/i Musculoskeletal BLE symmetric, nonerythematous, nontender Results & Data Vital Signs (Past 12 Hours) Vital Signs Temp Pulse Pulse Resp BP Pulse Ox O2 Del Method 06/19/24 23:35 98.2 F 95 H 18 119/79 96 Room Air 06/19/24 20:42 98.8 F 102 H 16 132/84 96 Room Air
[2024-06-20 08:13] VITALS: O2SAT 97
[2024-06-20] MEDS ORDERED: bisacodyL 10 MG SUPP PR PRN (08:31)
[2024-06-20] MEDS ORDERED: ACETAMINOPHEN 325 MG TAB PO PRN (08:31)
[2024-06-20] MEDS ORDERED: IBUPROFEN 600 MG TAB PO PRN (08:31)
[2024-06-20] MEDS: MAGNESIUM HYDROXIDE SUSP 30 ML UDC PO PRN (11:23)
[2024-06-20 15:40] VITALS: BP 138/93; RESP 20; TEMP 98.2
[2024-06-20 16:45] VITALS: PULSE 92
--- NOTE | 2024-06-21 19:02 | Discharge Summary ---
Date of Service Admit June 18, 2024 Discharge 06/20/24 Admission HPI Per Admitting Provider 24yo at 39+wks ega will present to LD for admission 06/18 for planned repeat cs. Patient denies rom, vb. +FM. No regular ctx. Prior c/s elective and now wants repeat c/s. PNC c/b 1. prior c/s, desires repeat 2. obesity 3. polyhydramnios--last growth u/s mfm [facility] efw 92% PNL rh pos, ri, gbs neg OBH: c/s x 1 GYNH: nl pap, last 2021, no stds Discharge Data Procedures Performed Operation Date: 06/18/24 07:30 Actual Procedures p Repeat Low Transverse Section in LD for live male at 0805 - Veronica Lloyd MD, [facility] Course (1) Encounter for care and examination after delivery: (2) History of delivery, antepartum: The patient underwent the above stated procedure without incident and her postoperative course and recovery was uncomplicated. On her postoperative day #2 she was tolerating a regular diet, voiding spontaneously, ambulating without problem and was using oral meds for adequate pain control. Her postoperative hemoglobin was 8.5. She was given written and verbal discharge instructions and told to followup in office at 6wks. She was given appropriate pain medicine prescriptions. Coding Level of Care Code None Diagnoses Encounter for care and examination after delivery Z39.2 History of delivery, antepartum O34.219
== END 2024-06-20 19:04 | disposition home or self-care (01) | DRG 788 ==
LOC: 4S1 05:32 → EDSTATUS 10:40 → 4E2 11:00
DX: O40.3XX0 Polyhydramnios, third trimester, not applicable or unspecified; E66.9 Obesity, unspecified; O34.211 Maternal care for low transverse scar from previous cesarean delivery; Z37.0 Single live birth; O99.214 Obesity complicating childbirth; Z79.899 Other long term (current) drug therapy; Z3A.39 39 weeks gestation of pregnancy